=== PATIENT | female | born 1990 | race Caucasian/White ===

== ENCOUNTER 2020-11-27 10:14 | Emergency (ER) | payer OTHER ==
[~2020-11-27] VITALS: Ht 175.3 cm; Wt 88.6 kg
[2020-11-27] MEDS ORDERED: NS 1,000 ML IV ONE (11:15)
[2020-11-27 12:05] LABS: BASO % 0.4 % (0.0-1.0); EOS # 0.1 10^3/uL (0.0-0.5); EOS % 1.6 % (0.0-3.0); HEMATOCRIT 41.3 % (36.0-47.0); HEMOGLOBIN 13.6 g/dl (12.0-15.5); LYMPH # 1.7 10^3/uL (1.5-5.0); LYMPH % 20.7 % (24.0-44.0); MEAN CORPUSCULAR HEMOGLOBIN 31.3 pg (27.0-33.0); MEAN CORPUSCULAR HGB CONC 32.9 g/dl (32.0-36.5); MEAN CORPUSCULAR VOLUME 95.2 fl (80.0-96.0); MONO # 0.6 10^3/uL (0.0-0.8); MONO % 7.6 % (2.0-8.0); NEUTROPHILS # 5.7 10^3/uL (1.5-8.5); NEUTROPHILS % 69.3 % (36.0-66.0); PLATELET COUNT, AUTOMATED 178 10^3/uL (150-450); RED BLOOD COUNT 4.34 10^6/uL (4.00-5.40); WHITE BLOOD COUNT 8.2 10^3/uL (4.0-10.0)
--- NOTE | 2020-11-27 12:29 | REP ---
INDICATION: cramping/vag bleeding, recent spontaneous ab. COMPARISON: None. TECHNIQUE: Transabdominal and transvaginal scanning were performed. FINDINGS: Uterine dimensions are normal at 9.1 x 4.6 x 5.4 cm. Endometrial echo is 1.1 cm thick and centrally placed. No free fluid is seen in the cul-de-sac. Visualized bladder perez are smooth. There is a 0.5 cm hypoechoic area in the posterior uterine myometrium consistent with a small uterine fibroid or cyst. The right ovary has dimensions of 3.5 x 2.1 x 2.1 cm. It's Doppler flow is normal with a resistive index of 0.6. There is a 2.1 cm follicle cyst in the right ovary. The left ovary dimensions are normal as well at 2.8 x 1.6 x 1.7 cm. It's Doppler flow was normal with resistive index of 0.7. IMPRESSION: Small follicle cyst right ovary. 0.4 cm probable uterine fibroid. No acute abnormality.. <Electronically signed by Lizandro Jalloh > 11/27/20 [id number]
[2020-11-27 12:34] LABS: BLOOD UREA NITROGEN 22 MG/DL (7-18); CARBON DIOXIDE LEVEL 27 MEQ/L (21-32); CHLORIDE LEVEL 106 MEQ/L (98-107); CREATININE FOR GFR 0.84 MG/DL (0.55-1.30); GLOMERULAR FILTRATION RATE > 60.0 (>60); GLUCOSE, FASTING 90 MG/DL (70-100); HCG, SERUM QUANTITATIVE < 1.0 MIU/ML; POTASSIUM SERUM 4.1 MEQ/L (3.5-5.1); SODIUM LEVEL 140 MEQ/L (136-145)
[2020-11-27 13:38] VITALS: BP 125/83
== END 2020-11-27 13:39 | disposition home or self-care (01) ==
LOC: M ED 10:14
DX: R10.2 Pelvic and perineal pain (principal); R42 Dizziness and giddiness; D25.9 Leiomyoma of uterus, unspecified; N93.9 Abnormal uterine and vaginal bleeding, unspecified; N83.01 Follicular cyst of right ovary; F17.200 Nicotine dependence, unspecified, uncomplicated